=== PATIENT | male | born 1965 | race Caucasian/White ===

== ENCOUNTER 2017-04-30 16:06 | Inpatient (IN) | payer BC ==
[~2017-04-30] VITALS: Ht 180.3 cm; Wt 147.4 kg
--- NOTE | 2017-04-30 18:47 | NUR ---
REPORT RECEIVED FROM GILMA AT [place]. PT TO TRANSPORT TO [facility] ROOM 220 VIA EMS. PER GILMA, PT LEFT AT APPROXIMATELY 1825. WILL AWAIT PT ARRIVAL. WILL PASS ON REPORT TO ONCOMING SHIFT.
[2017-04-30 20:00] VITALS: BP 120/56; BP 138/84
--- NOTE | 2017-04-30 20:00 | NUR ---
DIRECT ADMIT FROM ANOTHER FACILITY. DENIES CHEST PAIN OR SOB. TELEMETRY APPLIED SHOWING SR. FAMILY AT BEDSIDE. SEE ADMISSION ASSESSMENT AND HX. DISCUSSED CARDIAC CATH IN AM AND NPO STATUS. WILL CONT TO MONITOR AND ASSIST NEEDED.
[2017-04-30 20:25] LABS: ABSOLUTE EOSINOPHILS 0.4 thou/uL (0.0-0.7); ABSOLUTE LYMPHOCYTES 3.3 thou/uL (0.8-5.3); ABSOLUTE MONOCYTES 0.7 thou/uL (0.0-1.2); ABSOLUTE NEUTROPHILS 5.7 thou/uL (1.6-8.1); BASOPHILS 0.3 %; EOSINOPHILS 3.9 %; HEMATOCRIT 45.6 % (42.0-52.0); HEMOGLOBIN 15.8 gm/dL (14.0-18.0); LYMPHOCYTES 32.2 %; MCHC 34.6 g/dL (28.0-37.0); MCV 83.8 fL (80.0-100.0); MONOCYTES 7.3 %; MPV 7.8 fl. (7.2-11.1); NUCLEATED RBCS 0 /100WBC; PLATELET COUNT* 235 thou/uL (150-400); POLYS 56.3 %; RBC 5.45 mil/uL (4.50-6.00); RDW-CV 13.9 % (10.5-14.5); WBC 10.1 thou/uL (4.0-11.0)
[2017-04-30 20:46] LABS: ALBUMIN 3.6 g/dL (3.4-5.0); ALKALINE PHOSPHATASE 71 U/L (46-116); ANION GAP 10 mmol/L (7-16); BUN 22 mg/dL (7-18); CHLORIDE 105 mmol/L (98-107); CO2 28 mmol/L (21-32); CREATININE 1.1 mg/dL (0.6-1.3); GLUCOSE 106 mg/dL (70-99); MAGNESIUM 2.2 mg/dL (1.8-2.4); NT-PRO BRAIN NAT PEPTIDE 70 pg/mL (<300); POTASSIUM 3.3 mmol/L (3.5-5.1); SGOT 17 U/L (15-37); SGPT 32 U/L (30-65); SODIUM 143 mmol/L (136-145); TOTAL BILIRUBIN 0.7 mg/dL (<0.1-1.0); TOTAL PROTEIN 7.5 g/dL (6.4-8.2); TROPONIN-I LEVEL <0.06 ng/mL (<0.06)
[2017-04-30 21:02] LABS: APTT 27.4 Seconds (25.0-31.3); INR 1.1; PROTIME 10.4 Seconds (9.20-11.50)
[2017-05-01] VITALS (14 sets, daily range): BP systolic 140–168; BP diastolic 62–90
[2017-05-01] MEDS ORDERED: TOPROL XL50 MG PO (01:18)
[2017-05-01] MEDS ORDERED: NIFEDIPINE ER90 M1 PO (01:20)
[2017-05-01] MEDS ORDERED: ASPIR 8181 MG PO (01:21)
[2017-05-01] MEDS ORDERED: LISINOPRIL20 MG PO (01:22)
[2017-05-01 05:42] LABS: CHOLESTEROL 189 mg/dL (<200); HDL CHOLESTEROL 33 mg/dL (>40); LDL CHOLESTEROL 136 mg/dL (<100); TC:HDL 5.7 Ratio (Not establshd); TRIGLYCERIDE 101 mg/dL (<150); VLDL 20 mg/dL (<40)
[2017-05-01 05:51] LABS: SERUM ASSESSMENT Clear
--- NOTE | 2017-05-01 06:30 | NUR ---
SLEPT WELL TONIGHT. DENIES CP OR SOB. TELEMETRY CONT TO SHOW SR. NPO SINCE NC FOR CARDIAC CATH TODAY. IVF STARTED. NO CHANGE IN ASSESSMENT. HOURLY ROUNDING OBSERVED.
--- NOTE | 2017-05-01 11:29 | NUR ---
CM ASSESSMENT: Pt is A&O. Resides at home with his . Independent with ADLs, continues to work. No DME. No hx of HH or SNF. Goal is to return home once medically stable. Scheduled to have a LHC today. No needs anticipated.
--- NOTE | 2017-05-01 14:09 | NUR ---
RECEIVED PT 0700. PT IS ALERT AND ORIENTED X4. VSS. OCEAN LIFEGUARD TRACING SR. AM ASSESSMENT CHARTED. MEDS PER MAR. IVF INFUSINHG. PATIENT WENT TO GUEST ATTENDANT THIS AM. RIGHT RADIAL CLOSURE DEVICE IN PLACE TO RIGHT WRIST. EDUCATED PATIENT ON ACTIVITY RESTRICTIONS WITH THAT EXTREMITY. PATIENT VERBALIZED UNDERSTANDING. POST CARDIAC CATH VITAL SIGNS STABLE. NEW CARDIAC REHAB CONSULT. PATIENT RECEIVED HIS FIRST HEART STENT. PATIENT CONTINUES TO DENY ANY CHEST PAIN. UP INDEPENDENTLY IN ROOM. HIS GAIT IS STEADY. IS AT BEDSIDE AND UPDATED ON PLAN OF CARE. RIGHT WRIST SITE IS CLEAN, DRY, INTACT, NO HEMATOMA NOTED. PRESSURE RELEASED AND GAUZE DRESSING IN PLACE. CALL LIGHT WITHIN REACH. WILL CONTINUE TO MONITOR.
--- NOTE | 2017-05-01 14:37 | NUR ---
Pt was seen d/t cardiac consult. Pt was unavailable x2 when RD visited. RD will follow up next week and address any nutrition interventions needed. NPO currently. Chart Reviewed. Low nutrition risk at this time.
--- NOTE | 2017-05-01 18:23 | NUR ---
PATIENT PROGRESSING TOWARDS GOALS. NO COMPLAINTS OF PAIN THIS SHIFT. O2 SAT 100% ON ROOM AIR. UP AD MARINO IN ROOM. GAIT IS STEADY. UP TO SHOWE THIS EVENING AFTER DINNER. TOLERATING HIS DIET WITHOUT NAUSEA OR VOMITING. ANTICIPATING DISCHARGE TO HOME TOMORROW IF STABLE. PATIENT UP TO DATE ON PLAN OF CARE. WILL CONTINUE TO MONITOR.
--- NOTE | 2017-05-01 20:00 | NUR ---
RECEIVED REPORT AND ASSUMED CARE OF PT, ASSESSMENT COMPLETED. PT SITTING UP IN CHAIR VISITING WITH FAMILY. RT WRIST DRSG DRY AND INTACT. GOOD CAPILLARY REFILL AND + RADIAL PULSES. RT HAND 1+ EDEMA. TELEMETRY ON SHOWING SR. WILL CONT TO MONITOR AND ASSIST NEEDED.
--- NOTE | 2017-05-01 20:15 | EKG ---
[place] [address] ELECTROCARDIOGRAM REPORT Name: DORINA BLAKELY Room: [address] ADM IN .R.#: [id number] Admission: 04/30/17 Attend Phys: Deng Marcial MD Discharge: Date of : 69 Report #: [id number] THIS REPORT FOR: //name// [facility] Test Date: 2017-05-01 Test Time: 03:14:51 Pat Name: DORINA BLAKELY Department: Room: [address] Gender: M Government Guard: : 1965 Requested By: Maico Qureshi Order Number: [id number] Pat MD: Kit Moreland Measurements Intervals [place] Rate: 66 P: 49 SD: 199 QRS: 18 QRSD: 89 T: 23 QT: 392 QTc: 411 Interpretive Statements Sinus rhythm Probable left atrial enlargement Baseline wander in lead(s) III,aVF Compared to ECG 11/17/2008 07:54:56 Sinus bradycardia no longer present Electronically Signed On 05-01-2017 20:15:48 PAINT TECHNICIAN by Kit Moreland [email or web address] <ELECTRONICALLY SIGNED> By: Kit Moreland MD, [facility] 05/01/172014 Kit Moreland MD, [facility] /EPI
--- NOTE | 2017-05-01 20:19 | EKG ---
[place] [address] ELECTROCARDIOGRAM REPORT Name: DORINA BLAKELY Room: [address] ADM IN M.R.#: [id number] Admission: 04/30/17 Attend Phys: Deng Marcial MD Discharge: Date of : 69 Report #: [id number] THIS REPORT FOR: //name// [facility] Test Date: 2017-05-01 Test Time: 10:22:32 Pat Name: DORINA BLAKELY Department: Room: [address] Gender: M Auger Press Operator: [facility] : 1965 Requested By: Maico Qureshi Order Number: [id number] Pat MD: Kit Moreland Measurements Intervals [place] Rate: 54 P: 47 ND: 190 QRS: 21 QRSD: 90 T: 17 QT: 434 QTc: 412 Interpretive Statements Sinus rhythm Compared to ECG 11/17/2008 07:54:56 Sinus bradycardia no longer present Electronically Signed On 05-01-2017 20:19:39 MACHINE BOBBIN WINDER by Kit Moreland [email or web address] <ELECTRONICALLY SIGNED> By: Kit Moreland MD, [facility] 05/01/172018 1022 1022 Kit Moreland MD, [facility] /EPI
[2017-05-02] VITALS: BP 157/76
[2017-05-02 04:00] VITALS: BP 155/76
--- NOTE | 2017-05-02 05:19 | NUR ---
RT WRIST REMAINS WITHOUT INCIDENT. AMBULATING ABOUT ROOM AND HALLWAY WITH STEADY GAIT. DENIES CP. TELEMETRY CONT TO SHOW SR TO SB WHEN SLEEPING. ADVANCING TOWARDS DISCHARGE GOAL. HOURLY ROUNDING OBSERVED.
[2017-05-02 05:46] LABS: HEMATOCRIT 41.7 % (42.0-52.0); HEMOGLOBIN 14.3 gm/dL (14.0-18.0); MCH 28.9 pg (26.0-34.0); MCHC 34.3 g/dL (28.0-37.0); MCV 84.3 fL (80.0-100.0); MPV 8.3 fl. (7.2-11.1); RBC 4.94 mil/uL (4.50-6.00); RDW-CV 13.5 % (10.5-14.5)
[2017-05-02 07:01] LABS: CALCIUM 8.4 mg/dL (8.5-10.1); CREATININE 1.1 mg/dL (0.6-1.3); POTASSIUM 3.2 mmol/L (3.5-5.1)
[2017-05-02 08:39] VITALS: BP 146/83
[2017-05-02] MEDS ORDERED: LIPITOR 20 MG T20 M1 PO (11:05)
[2017-05-02] MEDS ORDERED: CARVEDILOL12.5 MG PO (11:07)
[2017-05-02] MEDS ORDERED: BRILINTA90 MG PO (11:09)
--- NOTE | 2017-05-02 11:56 | NUR ---
PT DISCHARGED HOME ACCOMPANIED BY .PT VERBALIZED UNDERSTANDING OF DC INSTRUCTIONS AND MEDICATION TEACHING. IV AND FORM SETTER/DRIVER REMOVED PRIOR TO DISCHARGE. VSS AND NO C.O PAIN OR DISTRESS. ALL PERSONAL BELONGINGS AND PRESCRIPTIONS TAKEN WITH PT.
--- NOTE | 2017-05-02 12:16 | CON ---
[address] [address] CONSULTATION Name: DORINA BLAKELY Room: [address] IN ..#: [id number] Admission: 04/30/17 Attend Phys: Deng Marcial MD Discharge: 05/02/17 Date of : [birth year] Report #: [id number] THIS REPORT FOR: //name// CC: FAM unknown Deng Marcial INDICATION: Chest pain, elevated troponin and abnormal stress test. HISTORY OF PRESENT ILLNESS: The patient is a 51-year-old gentleman who presented to outside hospital Thursday with midsternal chest discomfort lasting approximately 20-25 minutes. He described it as a truck sitting on his chest. There was no radiation, he did have some shortness of breath with the pain. He does report having an episode of pain the day prior lasting approximately 5 minutes that resolved spontaneously. Other than that, he had not been having significant symptoms with the exception of some mild dyspnea on exertion. He denies orthopnea. He is not having paroxysmal nocturnal dyspnea. He denies palpitations. He did not have any associated nausea, vomiting or diaphoresis with his discomfort. He was evaluated at an outside hospital with serial troponins, which were minimally elevated. Peak troponin was 0.08. An echocardiogram showed normal LV systolic function and no evidence of wall motion abnormality. The patient apparently had a stress test at outside hospital that showed evidence of stress induced ischemia. I do not have that report available PAST MEDICAL HISTORY: 1. Hypertension. 2. Obesity. PAST SURGICAL HISTORY: Eye surgery in 1999. FAMILY HISTORY: Positive for coronary artery disease. SOCIAL HISTORY: The patient quit smoking many years ago. Drinks alcohol rarely. He is and lives with his . HOME MEDICATIONS: Aspirin 81 mg daily, lisinopril 20 mg daily, metoprolol succinate XL 50 mg daily, and nifedipine ER 90 mg daily. ALLERGIES: None documented. REVIEW OF SYSTEMS: NEUROLOGIC: He denies convulsions, seizures, fevers, chills, or sweats. GENERAL: There is no unexplained weight loss or weakness. RESPIRATORY: He denies any significant shortness of breath. He has some mild dyspnea on exertion. He denies underlying lung disease. CARDIAC: As outlined above. In addition, he denies edema. He denies murmur. He denies palpitations. GASTROINTESTINAL: No nausea, vomiting, hematemesis, melena, hematochezia, [place] [address] CONSULTATION Name: REDDYDORINA L Room: [address]#: [id number] Admission: 04/30/17 Attend Phys: Deng Marcial MD Discharge: 05/02/17 Date of : 69 Report #: [id number] jaundice, or hepatitis. GENITOURINARY: No dysuria or hematuria. HEMATOLOGIC AND LYMPHATIC: No history of anemia, bleeding disorder, blood clots, or cancer. ALLERGY AND IMMUNOLOGIC: No significant seasonal or medical allergy. PSYCHIATRIC: No depression or anxiety. MUSCULOSKELETAL: He has some arthritis without connective tissue disease. SKIN: No recent rashes, hives or chronic skin conditions. EYES: He denies any acute loss of vision. EARS, NOSE, MOUTH, AND THROAT: He denies epistaxis or dentures. PHYSICAL EXAMINATION: VITAL SIGNS: Stable. Blood pressure 154/71, pulse 72 and regular. GENERAL: This is a moderately obese, pleasant white male, in no distress. Mood and affect appropriate. HEENT: Extraocular muscles intact. Mucous membranes are moist. NECK: Shows no jugular venous distention. There are no carotid bruits. CHEST: Reveals clear lung figueroa without wheezes, rales or rhonchi. CARDIAC: Reveals a regular rhythm with normal S1 and S2. I do not appreciate a gallop or murmur. ABDOMEN: Reveals a protuberant abdomen, soft and nontender. Bowel sounds present. EXTREMITIES: Shows no edema. Peripheral pulses 2+ and easily palpable. SKIN: Warm and dry. IMPRESSION AND RECOMMENDATIONS: 1. Non-ST elevation myocardial infarction by elevated troponin and positive stress test. The he patient is being admitted for elective heart catheterization. Further intervention will be pending the results of that study. 2. Hypertension. Continue blood pressure medications as outlined above, make adjustments as needed. 3. Possible hyperlipidemia. We will check fasting lipid profile. <ELECTRONICALLY SIGNED> By: Kit Moreland MD, FACC 05/02/17 1216 0746 [id number] Moreland MD, FACC /nt
--- NOTE | 2017-05-02 13:25 | EKG ---
[place] [address] ELECTROCARDIOGRAM REPORT Name: DORINA BLAKELY Room: [address] IN .R.#: [id number] Admission: 04/30/17 Attend Phys: Deng Marcial MD Discharge: 05/02/17 Date of : 69 Report #: [id number] THIS REPORT FOR: //name// [facility] Test Date: 2017-05-02 Test Time: 08:05:05 Pat Name: DORINA BLAKELY Department: Room: [address] Gender: M Formulator Compounder: 29 : 1965 Requested By: Maico Qureshi Order Number: [id number] Pat MD: Kit Moreland Measurements Intervals [place] Rate: 68 P: 54 LA: 197 QRS: 16 QRSD: 90 T: 21 QT: 385 QTc: 410 Interpretive Statements Sinus rhythm Compared to ECG 05/01/2017 10:22:32 No significant changes Electronically Signed On 05-02-2017 13:25:06 DIRECTOR PAYMENT by Kit Moreland [email or web address] <ELECTRONICALLY SIGNED> By: Kit Moreland MD, [facility] 05/02/17 1325 08 4 Kit Moreland MD, FACC /EPI
--- NOTE | 2017-05-05 15:56 | CARD ---
[address] [address] CARDIAC CATH REPORT Name: DORINA BLAKELY Room: [address] IN ..#: [id number] Admission: 04/30/17 Attend Phys: Deng Marcial MD Discharge: 05/02/17 Date of : 69 Report #: [id number] THIS REPORT FOR: //name// APPROVED REPORT Patient Details Patient Status: In-Patient Room #: The patient is a 51 year-old male Event Personnel Kit Moreland Call Center Manager, Maico Qureshi Slasher Tender, Charly Childress (Felisha) Heather Perkins Elena RN RN, Valencia Gruber RN Monitor, Kellie Lancaster RTR Monitor Procedures Performed Art Access - R radial artery Left Heart Cath w/or w/o Coronaries [id number] [facility] w/wo Plasty Single CHARLES [id number] Art Access - R radial artery Indication Unstable angina Risk Factors Coronary Artery Disease Admission/Lab Medications/Medications given during procedure Heparin Unfract. Procedure Narrative The patient was brought electively to the Cardiac Catheterization Laboratory and was prepped and draped in a sterile manner. The right wrist was infiltrated with 2% Lidocaine subcutaneous anesthesia. A Slender Glidesheath sheath was inserted into the right radial artery. Coronary angiography was performed using coronary diagnostic catheters. The right coronary system was accessed and visualized with a Diagnostic catheter. The left coronary system was accessed and visualized with a Diagnostic catheter. The left ventricle was accessed and visualized with a Diagnostic catheter. Left ventricular/Aortic Valve gradient assessed via catheter pullback. Left ventriculogram was performed in RODARTE projection. The patient tolerated the procedure well and there were no complications associated with the procedure. There was no hematoma. Intraoperative Conscious Sedation Sedation start time: 07:59 Case end Time: [place] [address] CARDIAC CATH REPORT Name: DORINA BLAKELY Room: [address]#: [id number] Admission: 04/30/17 Attend Phys: Deng Marcial MD Discharge: 05/02/17 Date of : 69 Report #: [id number] 09:30 Fentanyl 50 mcg Versed 4 mg Dose: 2693 mGy Contrast Type and Amount: Visipaque 305 ml Coronary Angiography The patient's coronary anatomy is right dominant. Diagnostic Cath Left Main Normal LAD 40% proximal stenosis. Mid and distal vessel are normal. Diagonal 1 Normal Diagonal 2 Normal Circumflex 10% proximal narrowing. The mid and distal vessel are normal. OM1 Normal OM2 Normal Right Coronary 30% narrowed proximally 20% narrowing in the midportion and 20% narrowing distally. R PDA 30% narrowed in its midportion. RPLV 90% narrowed in its midportion. Left Ventriculography The left ventricle is normal in size with normal contractility. The left ventricular ejection fraction is estimated to be 60%. Left ventricular wall motion abnormalities are not present. Hemodynamics The aortic pressure is 129/87 mmHg with a mean of 108 mmHg. The left ventricular pressure is 130/13 mmHg with a mean of mmHg. The left ventricular end diastolic pressure is 14 mmHg. There was no gradient across the aortic valve upon pullback. Pullback from the left ventricle to the aorta revealed no gradient across the aortic valve. PCI Technique Lesion Anticoagulation was achieved with Heparin. Patient was preloaded with Ticagrelor PO 180 mg. Percutaneous coronary intervention was performed on the first right posterior lateral segment. The lesion stenosis prior to intervention was 95% with VINNIE 3 flow. A 6F AL 1 Guide Catheter was used to engage the ostium. A IG: BMW 190cm Interventional Guidewire was [place] [address] CARDIAC CATH REPORT Name: DORINA BLAKELY Room: [address]#: [id number] Admission: 04/30/17 Attend Phys: Deng Marcial MD Discharge: 05/02/17 Date of : 69 Report #: [id number] BALLOON DILATION A Balloon catheter Trek RX 2.5 X 12 was inserted and inflated up to 7.00atm for 10seconds. Repeat angiography revealed the following post-dilatation results: 40% stenosis. Additional Inflation: 15.00atm for 19seconds. STENT DEPLOYMENT A drug-eluting stent Xience Alpine RX 2.75 x 23 was inserted and inflated up to 11.00atm for 15seconds. Repeat angiography revealed the following post-stent deployment results: 0% stenosis. Additional Inflation: 11.00atm for 17seconds. Additional Inflation: 13.00atm for 20seconds. Final angiography reveals 0 % stenosis with VINNIE 3 flow. Conclusion 1. 40% ostial stenosis of the lad 2. 95% stenosis of the distal posterolateral branch of the rca 3. placement of a single drug eluting stent in the posterolateral branch Recommendations Cardiac Rehabilitation Referral Aggressive Medical Therapy Medications Administered Ticagrelor Diagnostic Cath Approved by: Kit Moreland MD Date/Time: <ELECTRONICALLY SIGNED> By: Maico Qureshi MD, [facility] 05/05/17 1556 1556 1556Dabernie Qureshi MD, [facility] /INF
== END 2017-05-02 11:50 | disposition home or self-care (01) | DRG 247 ==
LOC: M.2W 16:06
PROVIDERS: Internal Medicine Cardiovascular Disease; ADMIT Internal Medicine
DX: I21.4 Non-ST elevation (NSTEMI) myocardial infarction (principal); Z68.42 Body mass index [BMI] 45.0-49.9, adult; I10 Essential (primary) hypertension; E66.01 Morbid (severe) obesity due to excess calories; F17.220 Nicotine dependence, chewing tobacco, uncomplicated; E87.6 Hypokalemia; Z79.82 Long term (current) use of aspirin; Z79.899 Other long term (current) drug therapy; Z82.49 Family history of ischemic heart disease and other diseases of the circulatory system; Z88.0 Allergy status to penicillin; Z91.041 Radiographic dye allergy status